=== PATIENT | male | born 1975 | race Caucasian/White ===

== ENCOUNTER 2017-01-19 00:23 | Emergency (ER) | payer OTHER ==
[~2017-01-19] VITALS: Ht 188 cm; Wt 90.7 kg
[2017-01-19 00:35] VITALS: BP 151/85
[2017-01-19] MEDS ORDERED: HYDROCODONE/APAP 5/325MG 1 EACH TABLET ONE (01:35)
[2017-01-19] MEDS ORDERED: AMOX/CLAVULANATE 875 MG TABLET ONE (01:57)
[2017-01-19] MEDS ORDERED: HYDROCODONE/APAP 5/325MG 1 EACH TABLET PO ONE (02:00)
[2017-01-19] MEDS ORDERED: AMOX/CLAVULANATE 875 MG TABLET PO ONE (02:00)
== END 2017-01-19 02:10 | disposition home or self-care (01) ==
LOC: ER 00:27
DX: S01.25XA Open bite of nose, initial encounter (principal); S01.551A Open bite of lip, initial encounter; F12.10 Cannabis abuse, uncomplicated; W54.0XXA Bitten by dog, initial encounter; Y93.89 Activity, other specified; Y92.89 Other specified places as the place of occurrence of the external cause; Y99.8 Other external cause status
CPT/HCPCS: 70486; 99284; A4606; A6403; Z7610

== ENCOUNTER 2018-05-08 08:21 | Emergency (ER) | payer OTHER ==
[~2018-05-08] VITALS: Ht 188 cm; Wt 91.6 kg
[2018-05-08] MEDS ORDERED: TETRACAINE HCL/PF 0.5% UD 2 ML BOTTLE ONE (08:27)
[2018-05-08] MEDS ORDERED: FLUORESCEIN SODIUM OPHTH 1 EA STRIP ONE (08:27)
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
--- NOTE | 2018-05-08 08:32 | NUR ---
DR KELLY AT BEDSIDE FOR EVAL.
[2018-05-08] MEDS ORDERED: GENTAMICIN OPTH OINT 0.3% 3.5 G TUBE ONE (08:41)
--- NOTE | 2018-05-08 08:55 | NUR ---
Patient discharged to home in stable condition. Written and verbal after care instructions given. Patient verbalizes understanding of instruction.
[2018-05-08 08:56] VITALS: BP 131/68
[2018-05-08] MEDS ORDERED: GENTAMICIN OPTH OINT 0.3% 3.5 G TUBE LEFTEYE ONE (09:00)
== END 2018-05-08 08:57 | disposition home or self-care (01) ==
LOC: ER 08:24
DX: S05.02XA Injury of conjunctiva and corneal abrasion without foreign body, left eye, initial encounter (principal); F17.200 Nicotine dependence, unspecified, uncomplicated; F12.10 Cannabis abuse, uncomplicated; W22.8XXA Striking against or struck by other objects, initial encounter; Y93.89 Activity, other specified; Y92.89 Other specified places as the place of occurrence of the external cause; Y99.8 Other external cause status
CPT/HCPCS: 99283; A4606; A6410 ×2; Z7610

== ENCOUNTER 2020-09-20 22:14 | Inpatient (IN) | payer OTHER ==
[~2020-09-20] VITALS: Ht 182.9 cm; Wt 99.8 kg
[2020-09-20] MEDS ORDERED: ONDANSETRON HCL/PF 4 MG/2 ML VIAL ONE (22:57)
[2020-09-20] MEDS ORDERED: MORPHINE SULFATE INJ 4 MG/ML DISP.SYRIN ONE (22:57)
[2020-09-20] MEDS ORDERED: IV NS 0.9% 1,000 ML BAG IV ONE (23:00)
[2020-09-20] MEDS ORDERED: MORPHINE SULFATE INJ 2 MG/ML DISP.SYRIN IV ONE (23:00)
[2020-09-20] MEDS ORDERED: ONDANSETRON HCL/PF 4 MG/2 ML VIAL IVP ONE (23:00)
[2020-09-20 23:15] LABS: BASOPHILS % (AUTO) 0.3 % (0.0-2.0); EOSINOPHILS % (AUTO) 2.2 % (0.0-6.0); HEMATOCRIT 45 % (39-51); HEMOGLOBIN 15.1 g/dL (13.5-17.5); LYMPHOCYTES # (AUTO) 2.7 /CMM (0.8-4.8); LYMPHOCYTES % (AUTO) 29.1 % (20.0-44.0); MEAN CORPUSCULAR HGB CONC 34 g/dl (31.0-36.0); MEAN CORPUSCULAR VOLUME 89 fL (80-96); MONOCYTES # (AUTO) 0.8 /CMM (0.1-1.30); MONOCYTES % (AUTO) 8.8 % (2.0-12.0); NEUTROPHILS # (AUTO) 5.4 /CMM (1.8-8.9); NEUTROPHILS % (AUTO) 59.6 % (43.0-81.0); PLATELET COUNT (AUTO) 225 /CMM (150-450); RED BLOOD CELL COUNT(AUTO) 5.02 MIL/uL (4.5-6.0); WHITE BLOOD COUNT (AUTO) 9.1 K/uL (4.3-11.0)
--- NOTE | 2020-09-20 23:18 | NUR ---
BIBS FOR C/O R BUTTOCK ABSCESS "FOR A LONG TIME" TO ER BED 12 ORDERS RECEIVED AND CARRIED OUT
[2020-09-20] MEDS ORDERED: IOHEXOL-300 100 ML VIAL IV ONE ×2 (23:37→23:59)
[2020-09-20 23:38] LABS: CALCIUM, SERUM 9.1 mg/dL (8.5-10.1); CREATININE 0.9 mg/dL (0.6-1.3); POTASSIUM 3.8 mmol/L (3.5-5.1)
[2020-09-20] MEDS ORDERED: IV NS 0.9% 250 ML IV ONE (23:38)
[2020-09-20] MEDS ORDERED: CT SWABBABLE VALVE TRANS SET 1 EA INFUS.SET MC ONE (23:38)
[2020-09-20 23:44] LABS: ALBUMIN 3.6 g/dL (3.4-5.0); BILIRUBIN,DIRECT 0.1 mg/dL (0.0-0.2); BILIRUBIN,TOTAL 0.4 mg/dL (0.2-1.0); TOTAL PROTEIN, SERUM 7.4 g/dL (6.4-8.2)
--- NOTE | 2020-09-20 23:45 | NUR ---
PT TAKEN TO CT
[2020-09-21] MEDS ORDERED: MAGNESIUM HYDROXIDE 30 ML UDC PO PRN (01:30)
[2020-09-21] MEDS ORDERED: MORPHINE SULFATE INJ 2 MG/ML DISP.SYRIN IV PRN (01:30)
[2020-09-21] MEDS ORDERED: ONDANSETRON HCL/PF 4 MG/2 ML VIAL IVP PRN (01:30)
[2020-09-21] MEDS ORDERED: PIPERACILLIN /TAZOBACTAM 3.375 G in IV D5W 50 ML IV SCH (01:30)
[2020-09-21] MEDS ORDERED: HYDROCODONE/APAP 5/325MG TABLET PO PRN (01:30)
[2020-09-21] MEDS ORDERED: TEMAZEPAM 15 MG CAPSULE PO PRN (01:30)
[2020-09-21] MEDS ORDERED: ACETAMINOPHEN 325 MG TABLET PO PRN (01:30)
[2020-09-21] MEDS ORDERED: Z GUARD REMEDY 2 OZ OINT TP PRN (01:30)
[2020-09-21] MEDS ORDERED: MAG HYDROX/AL HYDROX/SIMETH 30 ML UDC PO PRN (01:30)
[2020-09-21] MEDS ORDERED: IV NS 0.9% 1,000 ML IV PRN (01:30)
--- NOTE | 2020-09-21 02:12 | NUR ---
dr josue yoon surgeon at bed side
[2020-09-21] MEDS ORDERED: LIDOCAINE MPF 1%-EPI 1:200,000 30 ML VIAL IJ ONE (02:19)
--- NOTE | 2020-09-21 02:32 | NUR ---
Dr Callejas at bed side for I&D
[2020-09-21] MEDS ORDERED: ZOSYN IVPB 3.375 G in IV D5W 50ml IV ONE (03:00)
[2020-09-21] MEDS ORDERED: PIPERACILLIN /TAZOBACTAM 3.375 G VIAL IV ONE (03:02)
[2020-09-21] MEDS ORDERED: PANTOPRAZOLE 40 MG TABLET.DR PO SCH (07:30)
[2020-09-21] MEDS ORDERED: PANTOPRAZOLE 40 MG TABLET.DR PO ONE (07:49)
--- NOTE | 2020-09-21 08:12 | NUR ---
PATIENT IN BED ASLEEP, EASILY AROUSABLE BY VOICE, HOOKED TO MONITOR. VSS. KEPT SAFE WARM AND COMFORTABLE
[2020-09-21] MEDS: PIPERACILLIN /TAZOBACTAM 3.375 G in IV D5W 100 ML IV SCH ×2 (09:00→16:57)
--- NOTE | 2020-09-21 09:32 | NUR ---
BREAKFAST TRAY PROVIDED. TOLERATED PO WELL.
--- NOTE | 2020-09-21 12:23 | NUR ---
LUNCH TRAY PROVIDED. TOLERATED PO WELL.
--- NOTE | 2020-09-21 15:26 | NUR ---
NICOLÁS MANAGER PACU AT BEDSIDE. MADE PATIENT AWARE THAT HE IS OK TO BE DISCHARGED.
[2020-09-21] MEDS ORDERED: METR500T PO (15:52)
[2020-09-21] MEDS ORDERED: SULF1TAB48 PO (15:52)
--- NOTE | 2020-09-21 16:46 | NUR ---
IV removed. Catheter intact and site benign. Pressure and 4x4 applied to site. No bleeding noted.
--- NOTE | 2020-09-21 17:02 | NUR ---
Patient discharged to home in stable condition. Written and verbal after care instructions given. Patient verbalizes understanding of instruction. Noted w 2.4 cm R buttock/perianal abscess. Clenased wound and changed with dry dressing. Patient provided w prescription. All belongings returned to patient.
[2020-09-21 17:46] VITALS: BP 127/80
== END 2020-09-21 17:02 | disposition home health service (06) | DRG 383 ==
LOC: ER 22:16 → TRANSITION 09-21 02:02 → OBSVTOIN 09-21 02:02
PROVIDERS: ADMIT Student in an Organized Health Care Education/Training Program; ATTEND Student in an Organized Health Care Education/Training Program
PROC: 0J993ZZ Drainage of Buttock Subcutaneous Tissue and Fascia, Percutaneous Approach (ICD-10-PCS; principal; 2020-09-21)
DX: L02.31 Cutaneous abscess of buttock (principal); E66.9 Obesity, unspecified; F12.90 Cannabis use, unspecified, uncomplicated; F17.210 Nicotine dependence, cigarettes, uncomplicated; Z20.822 Contact with and (suspected) exposure to COVID-19; K40.90 Unilateral inguinal hernia, without obstruction or gangrene, not specified as recurrent; K43.9 Ventral hernia without obstruction or gangrene; Z68.29 Body mass index [BMI] 29.0-29.9, adult; Z86.19 Personal history of other infectious and parasitic diseases; A60.1 Herpesviral infection of perianal skin and rectum; L98.8 Other specified disorders of the skin and subcutaneous tissue; K61.0 Anal abscess
CPT/HCPCS: 36415; 80048-TC; 80076-TC; 83605-TC; 85025-TC; 85730-TC; 87040-TC; 87081-TC; A6403; A6407; C9803; G0378; J2270; J2405; J2543; J3490; J7030; J7050; J7060; Q9967

== ENCOUNTER 2020-09-23 21:23 | Emergency (ER) | payer OTHER ==
[~2020-09-23] VITALS: Ht 185.4 cm; Wt 113.4 kg
[~2020-09-23 21:23] MED LIST: METR500T PO; SULF1TAB48 PO
--- NOTE | 2020-09-23 21:35 | NUR ---
CALLED PT IN [place]. NO ONE ANSWERED. PER ADMITTING PT WENT TO CAR.
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
[2020-09-23 21:50] VITALS: BP 126/74
== END 2020-09-23 22:43 | disposition home or self-care (01) ==
LOC: ER 21:23
DX: K61.1 Rectal abscess (principal); Z79.899 Other long term (current) drug therapy
CPT/HCPCS: 99281; A6407

== ENCOUNTER 2022-03-21 23:41 | Emergency (ER) | payer OTHER ==
[~2022-03-21] VITALS: Ht 188 cm; Wt 107.5 kg
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
--- NOTE | 2022-03-22 00:11 | NUR ---
CAR AUDIO INSTALLER AT PT'S BEDSIDE
--- NOTE | 2022-03-22 01:52 | NUR ---
CALLED STAT RAD TO F/U WITH REPORT & IN RADIOLOGISTS QUEUE, ABOUT 10 PATIENTS AHEAD BEFORE REPORT CAN BE READ
[2022-03-22] MEDS ORDERED: AMOX/CLAVULANATE 875 MG TABLET PO ONE (03:00)
[2022-03-22] MEDS ORDERED: NABU-141 PO (03:02)
[2022-03-22] MEDS ORDERED: OXYC-128 PO (03:02)
--- NOTE | 2022-03-22 03:09 | NUR ---
Patient discharged to home in stable condition. RX Written and verbal after care instructions given. Patient verbalizes understanding of instruction. pt ambulatory with a steady gait
[2022-03-22 03:10] VITALS: BP 131/71
== END 2022-03-22 03:15 | disposition home or self-care (01) ==
LOC: ER 23:43
DX: S32.010A Wedge compression fracture of first lumbar vertebra, initial encounter for closed fracture (principal); M54.50 Low back pain, unspecified; Z79.899 Other long term (current) drug therapy; V89.2XXA Person injured in unspecified motor-vehicle accident, traffic, initial encounter; Y93.89 Activity, other specified; Y92.89 Other specified places as the place of occurrence of the external cause; Y99.8 Other external cause status
CPT/HCPCS: 72110-TC

== ENCOUNTER → 2024-04-13 | Emergency (ER) | payer MEDICAID, OTHER ==
[~2024-04-13] VITALS: Ht 188 cm; Wt 106.6 kg
[~2024-04-13] MED LIST changes: +AMOX-430 PO; +DOXY100C2 PO; +NABU-141 PO; +OXYC-128 PO
[2024-04-13] MEDS: IBUPROFEN 400 MG TABLET PO ONE (15:25)
[2024-04-13 15:27] VITALS: BP 116/74; TEMP 100.6; O2SAT 94
== END | disposition left against medical advice (07) ==
LOC: ER 13:21
DX: R05.9 Cough, unspecified (principal); E78.5 Hyperlipidemia, unspecified; F17.200 Nicotine dependence, unspecified, uncomplicated; Z79.899 Other long term (current) drug therapy; Z79.891 Long term (current) use of opiate analgesic

== ENCOUNTER 2024-04-14 08:59 | Emergency (ER) | payer MEDICAID ==
[~2024-04-14] VITALS: Ht 188 cm; Wt 106.6 kg
[~2024-04-14 08:59] MED LIST changes: -AMOX-430 PO; -DOXY100C2 PO
[2024-04-14] MEDS ORDERED: IOHEXOL-300 100 ML VIAL IV ONE (11:09)
[2024-04-14] MEDS ORDERED: CT SWABBABLE VALVE TRANS SET 1 EA INFUS.SET MC ONE (11:09)
[2024-04-14] MEDS ORDERED: IV NS 0.9% 250 ML IV ONE (11:10)
[2024-04-14 11:27] LABS: BASOPHILS % (AUTO) 0.3 % (0.0-2.0); EOSINOPHILS # (AUTO) 0.1 K/uL (0.0-0.7); EOSINOPHILS % (AUTO) 1.2 % (0.0-6.0); HEMATOCRIT 43 % (39-51); HEMOGLOBIN 14.6 g/dL (13.5-17.5); LYMPHOCYTES # (AUTO) 1.2 K/uL (0.8-4.8); LYMPHOCYTES % (AUTO) 15.8 % (20.0-44.0); MEAN CORPUSCULAR HEMOGLOBIN 29 PG (26.0-33.0); MEAN CORPUSCULAR HGB CONC 34 g/dl (31.0-36.0); MEAN CORPUSCULAR VOLUME 86 fL (80-96); MONOCYTES # (AUTO) 0.8 K/uL (0.1-1.30); MONOCYTES % (AUTO) 10.3 % (2.0-12.0); NEUTROPHILS # (AUTO) 5.7 K/uL (1.8-8.9); NEUTROPHILS % (AUTO) 72.4 % (43.0-81.0); PLATELET COUNT (AUTO) 182 K/uL (150-450); RED BLOOD CELL COUNT(AUTO) 5.05 MIL/uL (4.5-6.0); RED CELL DISTRIBUTION WIDTH 13.2 % (11.5-15.0); WHITE BLOOD COUNT (AUTO) 7.8 K/uL (4.3-11.0)
[2024-04-14 11:35] LABS: CALCIUM, SERUM 8.9 mg/dL (8.5-10.1); CREATININE 0.9 mg/dL (0.6-1.3); POTASSIUM 3.3 mmol/L (3.5-5.1)
[2024-04-14] MEDS ORDERED: AMOX-430 PO (13:19)
[2024-04-14] MEDS ORDERED: DOXY100C2 PO (13:19)
[2024-04-14 13:35] VITALS: BP 124/84; TEMP 98.8; O2SAT 99
== END 2024-04-14 13:39 | disposition home or self-care (01) ==
LOC: ER 09:03
DX: J18.9 Pneumonia, unspecified organism (principal); R05.9 Cough, unspecified; R09.81 Nasal congestion; R06.09 Other forms of dyspnea; R53.83 Other fatigue; E78.5 Hyperlipidemia, unspecified; F12.10 Cannabis abuse, uncomplicated
CPT/HCPCS: 99285; 71260; 71045; 85025; 80048; 36415; J7050; Q9967